=== PATIENT | male | born 1955 | race Caucasian/White ===

== ENCOUNTER 2016-11-12 11:24 | Emergency (ER) | payer SELFPAY ==
[~2016-11-12] VITALS: Ht 175.3 cm; Wt 93.0 kg
[~2016-11-12 11:24] MED LIST: Z.0.NO CURRENT MEDS
[2016-11-12 11:27] VITALS: BP 236/112; PULSE 78; RESP 20; TEMP 97.8; O2SAT 98
--- NOTE | 2016-11-12 11:37 | PD ---
HPI Chief Complaint: Left Hand Swelling Time Seen by Provider: 11:37 Travel History International Travel<30 days: No Contact w/Intl Traveler<30days: No Traveled to known affect area: No History of Present Illness HPI 61-year-old male presents to the emergency Department with history of psoriatic arthritis. Patient states he has developed a typical arthritic flare in his left wrist which began last evening and has gotten worse through the evening and morning. Patient states he normally takes prednisone with good response. He states he is unable to get in contact with his "doctor". Patient is noted to have extremely high blood pressure in triage, but he has no complaints of chest pain, headache, or other constitutional symptoms. Patient denies fever, chills or other symptoms. He has no known drug allergies. PFSH Past Medical History Hypertension: Yes (PT STATES HE DOES NOT TAKE ANYTHING FOR HIGH BP) Social History Alcohol Use: Yes (BEER DAILY) Tobacco Use: No Substance Use: No Allergies-Medications (Allergen,Severity, Reaction): Coded Allergies: No Known Allergies (Verified , 11/12/16) Reported Meds & Prescriptions Reported Meds & Active Scripts Active Prednisone (48) 10 mg tab Dose Pack (Prednisone) 10 Mg Dspk 10 Mg PO DIRECTED Lisinopril 10 Mg Tab 10 Mg PO DAILY Reported Methylprednisolone 4 Mg Tab 4 Mg PO DAILY Review of Systems Except as stated in HPI: all other systems reviewed are Neg General / Constitutional: No: Fever Eyes: No: Visual changes HENT: No: Headaches Cardiovascular: No: Chest Pain or Discomfort Respiratory: No: Shortness of Breath Gastrointestinal: No: Abdominal Pain Genitourinary: No: Dysuria Musculoskeletal: No: Pain Skin: No Rash Neurologic: No: Weakness Psychiatric: No: Depression Endocrine: No: Polydipsia Hematologic/Lymphatic: No: Easy Bruising Physical Exam Narrative GENERAL: Patient appears in mild distress. SKIN: Warm and dry. Patient has some mild psoriatic changes consistent with arthritis history. No signs of erythema or cellulitis to the left wrist. He has normal color and normal turgor. HEAD: Atraumatic. Normocephalic. EYES: Pupils equal and round. No scleral icterus. No injection or drainage. ENT: No nasal bleeding or discharge. Mucous membranes pink and moist. NECK: Trachea midline. No JVD. CARDIOVASCULAR: Regular rate and rhythm. RESPIRATORY: No accessory muscle use. Clear to auscultation. Breath sounds equal bilaterally. GASTROINTESTINAL: Abdomen soft, non-tender, nondistended. Hepatic and splenic margins not palpable. MUSCULOSKELETAL: Extremities without clubbing, cyanosis, or edema. No obvious deformities. Left wrist appears normal without significant swelling or edema. Patient complains of tenderness with palpation and movement on the left wrist. NEUROLOGICAL: Awake and alert. No obvious cranial nerve deficits. Motor grossly within normal limits. Five out of 5 muscle strength in the arms and legs. Normal speech. PSYCHIATRIC: Appropriate mood and affect; insight and judgment normal. Data Data Last Documented VS Vital Signs Date Time Temp Pulse Resp B/P Pulse Ox O2 Delivery O2 Flow Rate FiO2 11/12/16 13:05 194/104 11/12/16 11:38 98.3 94 20 98 11/12/16 11:27 Room Air Orders Dexamethasone Inj (Decadron Inj) (11/12/16 11:45) Ecg Monitoring (11/12/16 11:40) Oximetry (11/12/16 11:40) Metoprolol Tartrate Inj (Lopressor Inj) (11/12/16 11:45) Morphine Inj (Morphine Inj) (11/12/16 11:45) Metoprolol Tartrate (Lopressor) (11/12/16 12:15) Dexamethasone Inj (Decadron Inj) (11/12/16 12:15) MDM Medical Decision Making Medical Screen Exam Complete: Yes Emergency Medical Condition: Yes Differential Diagnosis Hypertension. Psoriatic arthritis flare. Left wrist pain. Narrative Course Patient is medically stable at time of exam. Patient is discussed with Dr. Riley who recommends treating the patient's blood pressure as well as his psoriatic arthritis, but does not recommend labs EKG etc. as the patient is otherwise asymptomatic. Dr. Riley speaks to the patient as well and examined him as well. IV access is obtained patient is given Decadron 10 mg IV as well as metoprolol 5 mg every 15 minutes 3 for blood pressure control. Patient is given 2 mg morphine IV. IV access was not able to be obtained., So IV medications canceled. Patient was given oral metoprolol 25 mg by mouth as well as 10 mg Decadron IM. Patient was monitored and blood pressure was rechecked after 1 hour. Patiently discharged home with a prednisone Dosepak as prescribed. Patient is also started on Zestril 10 mg daily #30. Patient is to follow-up with local primary care physician as discussed. Patient may return to emergency Department with worsening symptoms if necessary. Diagnosis Primary Impression: Psoriatic arthritis Additional Impression: Hypertension Qualified Code: I10 - Essential hypertension Referrals: [facility] Patient Instructions: 2 Gram Sodium Diet (DC), Arthralgia (ED), General Instructions, Hypertension (ED) Med/Other Pt SpecificInfo: Prescription(s) given Scripts Prednisone (48) 10 mg tab Dose Pack 10 Mg Dspk10 Mg PO DIRECTED #1 DSPK Ref 0 Prov:Jaqui Dawson MD 11/12/16 Lisinopril 10 Mg Tab10 Mg PO DAILY #30 TAB Ref 0 Prov:Jaqui Dawson MD 11/12/16 Disposition: 01 DISCHARGE HOME Condition: Stable Demarco Soriano Nov 12, 2016 11:37 Demarco Soriano Nov 12, 2016 11:37
[2016-11-12 11:38] VITALS: BP 230/121; PULSE 94; RESP 20; TEMP 98.3; O2SAT 98
[2016-11-12] MEDS ORDERED: METH4TAB6 PO (11:43)
[2016-11-12] MEDS ORDERED: METOPROLOL TARTRATE 5 MG/5 ML VIAL IVS SCH (11:45)
[2016-11-12] MEDS ORDERED: MORPHINE SULFATE 4 MG/ML INJ IV PUSH ONE (11:45)
[2016-11-12] MEDS ORDERED: DEXAMETHASONE SOD PHOS 20 MG/5 ML VIAL IV PUSH ONE (11:45)
--- NOTE | 2016-11-12 11:48 | PD ---
Data Data Last Documented VS Vital Signs Date Time Temp Pulse Resp B/P Pulse Ox O2 Delivery O2 Flow Rate FiO2 11/12/16 11:38 98.3 94 20 230/121 98 11/12/16 11:27 Room Air Orders Dexamethasone Inj (Decadron Inj) (11/12/16 11:45) Iv Access Insert/Monitor (11/12/16 11:40) Ecg Monitoring (11/12/16 11:40) Oximetry (11/12/16 11:40) Metoprolol Tartrate Inj (Lopressor Inj) (11/12/16 11:45) Morphine Inj (Morphine Inj) (11/12/16 11:45) MDM Supervised Visit with LUIS F: Yes Narrative Course I, Dr. Dawson, have reviewed the advance practice practioner's documentation and am in agreement, met with the patient face to face, made the diagnosis, and the medical decision making was done by me. *My assessment and Findings: 51-year-old male here with complaint of left wrist pain. History of psoriatic arthritis. Patient states that every once a while it flares up, as he believes it has today and he has pain, slight swelling. There is no appreciable erythema on exam. It is slightly warm. Patient is able to flex and extend the wrist with minimal discomfort. He is noted to have psoriatic skin changes on the hands bilaterally. Patient states that typically when he has this, steroids help. Shows me a Solu-Medrol Dosepak. Patient is requesting this year. There is no clinical exam findings to suggest septic arthritis and he denies IV drug use. Incidentally patient is quite hypertensive , this will need to be treated. He is asymptomatic without headache, chest pain , shortness of breath. He does not doctor frequently and does not have outpatient PCP whom he sees frequently. Will need outpatient follow-up for blood pressure management. Jaqui Dawson MD Nov 12, 2016 11:48
[2016-11-12] MEDS ORDERED: PRED10PA2 PO (12:06)
[2016-11-12] MEDS ORDERED: LISI10TA3 PO (12:06)
[2016-11-12] MEDS ORDERED: METOPROLOL TARTRATE 25 MG TAB PO ONE (12:15)
[2016-11-12] MEDS ORDERED: DEXAMETHASONE SOD PHOS 20 MG/5 ML VIAL IM ONE (12:15)
[2016-11-12 12:28] VITALS: BP 220/120
[2016-11-12 12:55] VITALS: BP 201/118
[2016-11-12 13:05] VITALS: BP 194/104
[2016-11-12 13:26] VITALS: BP 182/100
== END 2016-11-12 13:27 | disposition home or self-care (01) ==
LOC: NEPE 11:24
DX: L40.50 Arthropathic psoriasis, unspecified (principal); I10 Essential (primary) hypertension
CPT/HCPCS: 96372; 99283; J1100